=== PATIENT | male | born 1985 | race Caucasian/White ===

== ENCOUNTER 2023-09-16 18:04 | Emergency (ER) | payer OTHER ==
[2023-09-16 18:07] VITALS: BP 149/58; PULSE 98; RESP 18; TEMP 98.1; BMI 27.4
[2023-09-16] MEDS ORDERED: ACETAMINOPHEN 325 MG TABLET (FP) ONE (18:23)
[2023-09-16] MEDS ORDERED: LIDOCAINE 4% PATCH TP ONE (18:23)
[2023-09-16] MEDS ORDERED: KETOROLAC TROMETHAMINE 30 MG/1 ML VIAL ONE (18:24)
[2023-09-16] MEDS ORDERED: METHOCARBAMOL 500 MG TABLET ONE (18:24)
[2023-09-16] MEDS: ACETAMINOPHEN 325 MG TABLET (FP) PO ONE (18:27)
[2023-09-16] MEDS: LIDOCAINE 4% PATCH TP ONE (18:27)
[2023-09-16] MEDS: METHOCARBAMOL 500 MG TABLET PO ONE (18:27)
[2023-09-16] MEDS: KETOROLAC TROMETHAMINE 30 MG/1 ML VIAL IM ONE (18:27)
[2023-09-16] MEDS ORDERED: LIDOCAINE PATCH REMOVAL MC SCH (22:00)
== END 2023-09-16 18:50 | disposition home or self-care (01) ==
LOC: JERFT 18:04
PROC: 3E0233Z Introduction of Anti-inflammatory into Muscle, Percutaneous Approach (ICD-10-PCS; principal; 2023-09-16)
DX: M54.50 Low back pain, unspecified (principal)
CPT/HCPCS: 99284-25